=== PATIENT | male | born 1945 | race Caucasian/White ===

== ENCOUNTER → 2017-03-10 | Outpatient (CLI) | payer MEDICARE ==
[~2017-03-10] MED LIST: ASPIRIN EC81 MG PO
== END ==
LOC: RAD 09:06
DX: N20.0 Calculus of kidney (principal)
CPT/HCPCS: 74000

== ENCOUNTER 2021-09-11 11:47 | Emergency (ER) | payer MEDICARE ==
[~2021-09-11 11:47] MED LIST changes: +ASPIR 8181 MG PO; +ASPIRIN CHEWABL81 MG PO; +ASPIRIN325 MG PO; +CRESTOR20 MG PO; +JANUMET 50-1,01 EACH PO; +K-DUR TAB 10 M10 MEQ PO; +LISINOPRIL-HCT1 EAC1 PO; +NORCO 7.5-3251 EACH PO; +OMEPRAZOLE20 M1 PO; +ONDANSETRON ODT4 MG PO; +VIBRAMYCIN100 MG PO
[2021-09-11 13:20] LABS: RED BLOOD COUNT 4.65 M/UL (4.20-5.50)
[2021-09-11 13:49] LABS: BUN/CREATININE RATIO 22 (0-10)
== END 2021-09-11 19:08 | disposition home or self-care (01) ==
LOC: ER1 11:47
PROVIDERS: Physician Assistant
DX: R10.9 Unspecified abdominal pain (principal); E11.9 Type 2 diabetes mellitus without complications; I10 Essential (primary) hypertension; Z87.442 Personal history of urinary calculi
CPT/HCPCS: 71045; 80053; 81001; 82550; 82553; 83690; 83874; 84484; 85025; 87086; 93005; 99284; J7040; Q9967